=== PATIENT | male | born 1995 | race Caucasian/White ===

== ENCOUNTER 2018-06-02 04:47 | Day surgery (SDC) | payer BC, OTHER ==
[~2018-06-02] VITALS: Ht 177.8 cm; Wt 90.7 kg
[2018-06-02] MEDS ORDERED: LACTATED RINGERS 1,000 ML IV ONE (05:06)
[2018-06-02] MEDS ORDERED: KETOROLAC 30 MG/ML VIAL IVP STA (05:06)
[2018-06-02] MEDS ORDERED: ONDANSETRON 4 MG/2 ML (SDV) Z0FRAN IVP ONE (05:15)
[2018-06-02 05:20] LABS: BASOPHILS % (AUTO) 0 % (0-10); EOSINOPHILS % (AUTO) 0 % (0-10); HEMATOCRIT 45 % (40-54); HEMOGLOBIN 16.3 G/DL (13.3-17.7); LYMPHOCYTES % (AUTO) 5 % (12-44); MEAN CORPUSCULAR HEMOGLOBIN 29 PG (25-34); MEAN CORPUSCULAR HGB CONC 36 G/DL (32-36); MEAN CORPUSCULAR VOLUME 82 FL (80-99); MEAN PLATELET VOLUME 10.1 FL (7.4-10.4); MONOCYTES # (AUTO) 0.4 X 10^3 (0.0-1.0); MONOCYTES % (AUTO) 2 % (0-12); NEUTROPHILS # (AUTO) 17.3 X 10^3 (1.8-7.8); NEUTROPHILS % (AUTO) 92 % (42-75); PLATELET COUNT 273 10^3/uL (130-400); RED CELL DISTRIBUTION WIDTH 13.1 % (10.0-14.5); WHITE BLOOD COUNT 18.7 10^3/uL (4.3-11.0)
--- NOTE | 2018-06-02 05:22 | ED GI ---
General Stated Complaint: ABD PAIN Source of Information: Patient History of Present Illness Date Seen by Provider: Jun 02, 2018 Time Seen by Provider: 05:00 Initial Comments PT ARRIVES VIA POV FROM HOME C/O LOWER ABDOMINAL PAIN SINCE YESTERDAY AROUND NOON HAS HAD NAUSEA AND VOMITING SINCE YESTERDAY "AROUND NOON"--STATES HE HAD BREAKFAST AT 0600 YESTERDAY, ATE CEREAL, AND "THEN THREW IT RIGHT BACK UP" STATES HE HAS "VOMITED 18 TIMES" --STATES ACTUAL EMESIS 10-11 TIMES, AND DRY HEAVES 7-8 TIMES C/O "CONSTIPATED" SINCE WEDNESDAY--STATES HE HAD A NORMAL BM ON Wednesday05/31/18, AND NO BM SINCE STATES HE IS ONLY URINATING A LITTLE BIT TODAY--VOIDED JUST PRIOR TO ARRIVAL "BUT IT WAS ONLY A TRICKLE" NO FEVER, BUT HAS HAD CHILLS NO SICK CONTACTS OR SUSPICIOUS FOODS TOOK 2 TUMS YESTERDAY WITHOUT RELIEF PAIN IS WORSENED BY MOVEMENTS, WALKING, ETC. NO HISTORY OF GI PROBLEMS OR ABDOMINAL SURGERIES [facility] [facility] [place] [place] Allergies and Home Medications Allergies Coded Allergies: No Known Drug Allergies (Unverified , 06/02/18) Patient Home Medication List Home Medication List Reviewed: Yes Review of Systems Review of Systems Constitutional: see HPI, chills Respiratory: No Symptoms Reported Cardiovascular: No Symptoms Reported Gastrointestinal: See HPI, Abdominal Pain, Constipated, Nausea, Poor Appetite, Poor Fluid Intake, Vomiting Genitourinary: See HPI Musculoskeletal: no symptoms reported Skin: no symptoms reported Psychiatric/Neurological: No Symptoms Reported Endocrine: No Symptoms Reported Hematologic/Lymphatic: No Symptoms Reported Past Nghlqhb-Yldzgr-Gagwot Hx Patient Social History Alcohol Use: Occasionally Uses Recreational Drug Use: Yes (THC) Drug of Choice: THC Smoking Status: Current Everyday Smoker Type Used: Electronic/Vapor (STARTED 04/2018), Smokeless Tobacco (CHEWED 1 CAN EVERY 2-3 DAYS, QUIT 04/2018, NOW VAPES OF 06/02/18) Recent Foreign Travel: No Contact w/Someone Who Travel: No Past Medical History Surgeries: Yes (WISDOM TEETH , LEFT SHOULDER SURGERY) Orthopedic Respiratory: No Cardiac: No Neurological: No Genitourinary: No Gastrointestinal: No Musculoskeletal: Yes (LEFT SHOULDER SURGERY) HEENT: No (WISDOM TEETH ) Cancer: No Psychosocial: Yes Depression Integumentary: No Blood Disorders: No Physical Exam Vital Signs Vital Signs - First Documented 06/02/18 05:00 Temp 98.0 Pulse 99 Resp 16 B/P (MAP) 152/97 (115) Capillary Refill : Height/Weight/BMI Height: '" Weight: lbs. oz. kg; BMI Method: General Appearance: WD/WN, no apparent distress Neck: normal inspection Respiratory: normal breath sounds, no respiratory distress, no accessory muscle use Cardiovascular: regular rate, rhythm, no murmur Gastrointestinal: soft, no organomegaly, abnormal bowel sounds (HYPOACTIVE); No distended, No guarding; rebound (EQUIVOCAL), tenderness (DIFFUSE LOWER ABDOMINAL TENDERNESS, MOST TENDER IN RLQ); No hernia, No mass Back: no CVA tenderness Neurologic/Psychiatric: bulb grower II-XII nml as tested, no motor/sensory deficits, alert, normal mood/affect, oriented x 3 Progress/Results/Core Measures Results/Orders Lab Results Laboratory Tests Test 06/02/18 05:10 Range/Units White Blood Count 18.7 H 4.3-11.0 10^3/uL Red Blood Count 5.55 4.35-5.85 10^6/uL Hemoglobin 16.3 13.3-17.7 G/DL Hematocrit 45 40-54 % Mean Corpuscular Volume 82 80-99 FL Mean Corpuscular Hemoglobin 29 25-34 PG Mean Corpuscular Hemoglobin Concent 36 32-36 G/DL Red Cell Distribution Width 13.1 10.0-14.5 % Platelet Count 273 130-400 10^3/uL Mean Platelet Volume 10.1 7.4-10.4 FL Neutrophils (%) (Auto) 92 H 42-75 % Lymphocytes (%) (Auto) 5 L 12-44 % Monocytes (%) (Auto) 2 0-12 % Eosinophils (%) (Auto) 0 0-10 % Basophils (%) (Auto) 0 0-10 % Neutrophils # (Auto) 17.3 H 1.8-7.8 X 10^3 Lymphocytes # (Auto) 1.0 1.0-4.0 X 10^3 Monocytes # (Auto) 0.4 0.0-1.0 X 10^3 Eosinophils # (Auto) 0.0 0.0-0.3 10^3/uL Basophils # (Auto) 0.0 0.0-0.1 10^3/uL Neutrophils % (Manual) 92 % Lymphocytes % (Manual) 6 % Monocytes % (Manual) 2 % Sodium Level 139 135-145 MMOL/L Potassium Level 4.0 3.6-5.0 MMOL/L Chloride Level 104 98-107 MMOL/L Carbon Dioxide Level 21 21-32 MMOL/L Anion Gap 14 5-14 MMOL/L Blood Urea Nitrogen 13 7-18 MG/DL Creatinine 0.88 0.60-1.30 MG/DL Estimat Glomerular Filtration Rate > 60 BUN/Creatinine Ratio 15 Glucose Level 143 H 70-105 MG/DL Calcium Level 9.9 8.5-10.1 MG/DL Corrected Calcium 8.5-10.1 MG/DL Total Bilirubin 0.9 0.1-1.0 MG/DL Aspartate Amino Transf (AST/SGOT) 22 5-34 U/L Alanine Aminotransferase (ALT/SGPT) 26 0-55 U/L Alkaline Phosphatase 70 40-136 U/L Total Protein 8.1 6.4-8.2 GM/DL Albumin 4.9 H 3.2-4.5 GM/DL Amylase Level 52 25-125 U/L Lipase 13 8-78 U/L My Orders Orders - THOMAS HENDERSON DO Saline Lock/Iv-Start (06/02/18 05:06) Ct Abdomen/Pelvis Wo (06/02/18 05:06) Amylase (06/02/18 05:06) Cbc With Automated Diff (06/02/18 05:06) Comprehensive Metabolic Panel (06/02/18 05:06) Lipase (06/02/18 05:06) Ua Culture If Indicated (06/02/18 05:06) Acute Abd Series (06/02/18 05:06) Ondansetron Injection (Zofran Injectio (06/02/18 05:15) Saline Lock/Iv-Start (06/02/18 05:06) Lactated Ringers (Lr 1000 Ml Iv Solution (06/02/18 05:06) Ketorolac Injection (Toradol Injection) (06/02/18 05:06) Manual Differential (06/02/18 05:10) Fentanyl Injection (Sublimaze Injection (06/02/18 06:03) Saline Lock/Iv-Start (06/02/18 06:03) Piperacillin/Tazobactam (Bulk) (Zosyn In (06/02/18 06:15) Medications Given in ED Current Medications Medications Dose Ordered Sig/Lynn Route Start Time Stop Time Status Last Admin Dose Admin Lactated Ringer's 1,000 ml @ 0 mls/hr Q0M ONCE IV 06/02/18 05:06 06/02/18 05:08 DC 06/02/18 05:22 999 MLS/HR Ondansetron HCl 8 mg ONCE ONCE IVP 06/02/18 05:15 06/02/18 05:16 DC 06/02/18 05:19 8 MG Vital Signs/I&O 06/02/18 05:00 Temp 98.0 Pulse 99 Resp 16 B/P (MAP) 152/97 (115) Progress Progress Note : Progress Note NAUSEA RESOLVED WITH ZOFRAN MILD RELIEF WITH TORADOL, GIVEN FENTANYL WITH SIGNIFICANT IMPROVEMENT IN PAIN UNEVENTFUL ER STAY Diagnostic Imaging Comments ACUTE ABDOMEN XRAYS--NO ACUTE PROCESS, PENDING RADIOLOGIST REVIEW CT ABDOMEN/PELVIS--+ APPENDICITIS, WITH APPENDICOLITH, WITHOUT PERFORATION OR ABSCESS OR BOWEL OBSTRUCTION; HEPATIC STEATOSIS--PER RADIOLOGIST REPORT @ 0619 Reviewed: Reviewed by Me Departure Communication (Admissions) 0608--SPOKE WITH DR. DEXTER, WILL BE IN TO SEE PT. ADVISES ZOSYN AND WILL HOLD IN ER UNTIL BED AVAILABLE ON FLOOR. 0612--SPOKE WITH OPTIC FIBRE DRAWER AND AGREES WITH ABOVE PLAN 0619--DR DEXTER CALLED BACK, WILL BE IN TO SEE PT AND TAKE DIRECTLY TO SURGERY, BEFORE REGULAR SCHEDULED CASES 0622--DR. DEXTER HERE TO SEE PT, CARE TURNED OVER TO HIM 0634--SPOKE WITH [employer] F[employer] DRAWER AND INFORMED HIM OF THE ABOVE PLAN Impression Primary Impression: Appendicitis Disposition: 09 ADMITTED INPATIENT (TO SURGERY) Condition: Improved Admissions Decision to Admit Reason: Admit from ER (General) (TO SURGERY) Decision to Admit/Date: Jun 02, 2018 Time/Decision to Admit Time: 06:10 Departure-Patient Inst. Referrals: [facility] (PCP/Family) Primary Care Physician THOMAS HENDERSON DO Jun 02, 2018 05:22
[2018-06-02 05:39] LABS: ALANINE AMINOTRANSFERASE 26 U/L (0-55); ALBUMIN 4.9 GM/DL (3.2-4.5); ALKALINE PHOSPHATASE 70 U/L (40-136); AMYLASE 52 U/L (25-125); BILIRUBIN,TOTAL 0.9 MG/DL (0.1-1.0); BUN/CREATININE RATIO 15; CALCIUM 9.9 MG/DL (8.5-10.1); CARBON DIOXIDE 21 MMOL/L (21-32); CHLORIDE 104 MMOL/L (98-107); CREATININE SERUM 0.88 MG/DL (0.60-1.30); GFR ESTIMATED > 60; GLUCOSE 143 MG/DL (70-105); LIPASE 13 U/L (8-78); SODIUM 139 MMOL/L (135-145); TOTAL PROTEIN 8.1 GM/DL (6.4-8.2)
[2018-06-02 06:03] LABS: LYMPHOCYTES % (MANUAL) 6 %; MONOCYTES % (MANUAL) 2 %; NEUTROPHILS % (MANUAL) 92 %
[2018-06-02] MEDS ORDERED: fentaNYL INJECTION 100 MCG/2 ML AMP IVP STA (06:03)
[2018-06-02] MEDS ORDERED: PIPERACILLIN/TAZOBACTAM (BULK) 4.5 GM in NS (IVPB) 100 ML IV ONE (06:15)
--- NOTE | 2018-06-02 06:16 | Diagnostic Imaging Report ---
PROCEDURE: CT abdomen and pelvis without contrast. TECHNIQUE: Multiple contiguous axial images were obtained through the abdomen and pelvis without the use of intravenous contrast. INDICATION: Nausea and vomiting. COMPARISON: None available. FINDINGS: Evaluation of the abdominal viscera is mildly limited without contrast. Lower chest: The lung bases are clear. No pericardial or pleural effusion. Peritoneum: No free intraperitoneal air or fluid. Liver and biliary system: Diffuse hypoattenuation liver suggests hepatic steatosis. No focal hepatic lesion by noncontrast imaging. The gallbladder is normal. No biliary duct dilation. Spleen and Pancreas: Spleen is normal. Unenhanced pancreas is grossly normal. Adrenals: Normal. tract: No renal or ureteral calculi. No obstructive uropathy. Prostate is not enlarged. GI tract: Stomach is decompressed. No bowel obstruction. No pericolonic inflammatory changes. Appendix is dilated measuring 1.5 cm with an obstructing appendicolith at its neck. No perforation or abscess. Vasculature and Lymph nodes: Normal caliber aorta. No abdominal or pelvic lymphadenopathy. Musculoskeletal: No concerning osseous lesion. IMPRESSION: 1. Acute appendicitis secondary to an obstructing appendicolith at the neck of the appendix. 2. No perforation, abscess or bowel obstruction. 3. Diffuse hepatic steatosis. Dictated by: Dictated on workstation # [id number]
[2018-06-02] MEDS ORDERED: NS (IVPB) 100 ML ONE (06:28)
[2018-06-02] MEDS ORDERED: PIPERACILLIN/TAZO 4.5 GM VIAL (ZOSYN) IV ONE (06:29)
--- NOTE | 2018-06-02 06:42 | History & Physical-Surgical ---
History of Present Illness History of Present Illness Reason for visit/HPI Seen in emergency department: CC: rlq abdominal pain. 22 year old male with rlq abdominal pain sharp in nature. 8/10 pain. worse with movement. no radiation of pain. nothing making better except pain medication. having nausea and emesis. had some chills. denies fever sweats shortness of breath or chest pain. reviewed ct scan abd/pelvis demonstrating appendicolith and dilated appendix consistent with appendicitis. Date of Admission t Date Seen by a Provider: Jun 02, 2018 Time Seen by a Provider: 06:39 I consulted on this patient on 06/02/18 06:36 Attending Physician Admitting [facility] Allergies and Home Medications Allergies Coded Allergies: No Known Drug Allergies (Unverified , 06/02/18) Patient Home Medication List Home Medication List Reviewed: Yes Past Ubqtzel-Qqcljr-Mrmzbv Hx Patient Social History Alcohol Use: Occasionally Uses Recreational Drug Use: Yes (THC) Drug of Choice: THC Smoking Status: Current Everyday Smoker Type Used: Electronic/Vapor Recent Foreign Travel: No Contact w/Someone Who Travel: No Recent Infectious Disease Expo: No Recent Hopitalizations: No Seasonal Allergies Seasonal Allergies: No Surgeries History of Surgeries: Yes (WISDOM TEETH , LEFT SHOULDER SURGERY) Surgeries: Orthopedic Respiratory History of Respiratory Disorde: No Cardiovascular History of Cardiac Disorders: No Neurological History of Neurological Disord: No Genitourinary History of Genitourinary Disor: No Gastrointestinal History of Gastrointestinal Di: No Musculoskeletal History of Musculoskeletal Dis: Yes (LEFT SHOULDER SURGERY) Endocrine History of Endocrine Disorders: No HEENT History of HEENT Disorders: No (WISDOM TEETH ) Cancer History of Cancer: No Psychosocial History of Psychiatric Problem: No Behavioral Health Disorders: Depression Integumentary History of Skin or Integumenta: No Blood Transfusions History of Blood Disorders: No Family Medical History Significant Family History: No Pertinent Family Hx Review of Systems Constitutional: see HPI, chills EENTM: no symptoms reported Respiratory: no symptoms reported Cardiovascular: no symptoms reported Gastrointestinal: see HPI Genitourinary: no symptoms reported Musculoskeletal: no symptoms reported Skin: no symptoms reported Psychiatric/Neurological: No Symptoms Reported Physical Exam Vital Signs Vital Signs - First Documented 06/02/18 05:00 Temp 98.0 Pulse 99 Resp 16 B/P (MAP) 152/97 (115) Capillary Refill : Less Than 3 Seconds Height, Weight, BMI Height: 5'10.00" Weight: 200lbs. oz. 90.594478nm; BMI Method:Stated General Appearance: No Apparent Distress HEENT: PERRL/EOMI, Normal ENT Inspection Neck: Non Tender, Supple Respiratory: Chest Non Tender, No Accessory Muscle Use, No Respiratory Distress Cardiovascular: Regular Rate, Rhythm Gastrointestinal: Soft, Tenderness (rlq) Rectal: Deferred Back: No CVA Tenderness Extremity: Normal Inspection, Normal Range of Motion, Non Tender Neurologic/Psychiatric: Alert, Oriented x3, No Motor/Sensory Deficits, Normal Mood/Affect, fountain helper II-XII Norm as Tested Skin: Normal Color, Warm/Dry Lymphatic: No Adenopathy Data Review Labs Laboratory Tests 06/02/18 05:10: White Blood Count 18.7H, Red Blood Count 5.55, Hemoglobin 16.3, Hematocrit 45, Mean Corpuscular Volume 82, Mean Corpuscular Hemoglobin 29, Mean Corpuscular Hemoglobin Concent 36, Red Cell Distribution Width 13.1, Platelet Count 273, Mean Platelet Volume 10.1, Neutrophils (%) (Auto) 92H, Lymphocytes (%) (Auto) 5L , Monocytes (%) (Auto) 2, Eosinophils (%) (Auto) 0, Basophils (%) (Auto) 0, Neutrophils # (Auto) 17.3H, Lymphocytes # (Auto) 1.0, Monocytes # (Auto) 0.4, Eosinophils # (Auto) 0.0, Basophils # (Auto) 0.0, Neutrophils % (Manual) 92, Lymphocytes % (Manual) 6, Monocytes % (Manual) 2, Sodium Level 139, Potassium Level 4.0, Chloride Level 104, Carbon Dioxide Level 21, Anion Gap 14, Blood Urea Nitrogen 13, Creatinine 0.88, Estimat Glomerular Filtration Rate > 60, BUN/ Creatinine Ratio 15, Glucose Level 143H, Calcium Level 9.9, Corrected Calcium , Total Bilirubin 0.9, Aspartate Amino Transf (AST/SGOT) 22, Alanine Aminotransferase (ALT/SGPT) 26, Alkaline Phosphatase 70, Total Protein 8.1, Albumin 4.9H, Amylase Level 52, Lipase 13 Assessment/Plan Assessment/Plan Admission Diagonsis acute appendicitis rlq abdominal pain Admission Status: Observation Assessment/Plan acute appendicitis rlq abdominal pain discussed risks and benefits of laparoscopic appendectomy possible open all other indicated procedures he understands and wishes to proceed. to OR KEEGAN DEXTER DO Jun 02, 2018 06:42
[2018-06-02] MEDS ORDERED: LACTATED RINGERS 1,000 ML IV SCH (06:45)
--- NOTE | 2018-06-02 06:48 | Diagnostic Imaging Report ---
Indication: Abdominal pain, nausea and vomiting. Comparison: CT abdomen and pelvis performed concurrently. Findings: Lungs are clear. No pleural effusion or pneumothorax. Normal cardiomediastinal silhouette and pulmonary vasculature. Nonobstructive bowel gas pattern. No free intraperitoneal air. No abnormal mineralizations along the kidneys or urinary tract. Normal regional skeleton. Impression: 1. Nonobstructive bowel gas pattern. Please see CT report for features of acute appendicitis. Dictated by: Dictated on workstation # [id number]
[2018-06-02] MEDS ORDERED: GLYCOPYRROLATE 0.2 MG/ML (ROBINUL) 2 ML VIAL ONE (07:00)
[2018-06-02] MEDS ORDERED: SEVOFLURANE (ULTANE) 15 ML INHAL SOLN ONE (07:00)
[2018-06-02] MEDS ORDERED: SUCCINYLCHOLINE INJ 100 MG/5 ML SYR ONE (07:00)
[2018-06-02] MEDS ORDERED: LIDOCAINE PF 2% 5 ML (XYLOCAINE) VIAL ONE (07:00)
[2018-06-02] MEDS ORDERED: NEOSTIGMINE 1 MG/ML 5 ML SYRINGE ONE (07:00)
[2018-06-02] MEDS ORDERED: MIDAZOLAM 2 MG/2 ML (VERSED) VIAL ONE (07:00)
[2018-06-02] MEDS ORDERED: proPOfol 200 MG/20 ML (DIPRIVAN) VIAL IV ONE (07:00)
[2018-06-02] MEDS ORDERED: ROCURONIUM 10 MG/ML 5 ML SYRINGE IV ONE (07:00)
[2018-06-02] MEDS ORDERED: fentaNYL INJECTION 100 MCG/2 ML AMP ONE ×2 (07:00→08:35)
[2018-06-02 07:03] LABS: BILIRUBIN,URINE NEGATIVE (NEGATIVE); CLARITY,URINE CLEAR; COLOR,URINE YELLOW; GLUCOSE, URINE (UA) NEGATIVE (NEGATIVE); KETONES,URINE 2+ (NEGATIVE); LEUKOCYTE ESTERASE ,URINE NEGATIVE (NEGATIVE); NITRITE,URINE NEGATIVE (NEGATIVE); PH,URINE 7 (5-9); PROTEIN,URINE 2+ (NEGATIVE); UROBILINOGEN,URINE NORMAL (NORMAL)
[2018-06-02 07:15] LABS: BACTERIA,URINE NEGATIVE /HPF; SQUAMOUS EPITHELIAL CELL,UR RARE /HPF
[2018-06-02] MEDS ORDERED: LIDOCAINE 1% INJ 20 ML 20 ML VIAL ONE (07:18)
[2018-06-02] MEDS ORDERED: BUP/EPI 0.5% 1:200,000 (SENSORCAINE) 30 ML VIAL ONE (07:18)
[2018-06-02] MEDS ORDERED: LACTATED RINGERS 1,000 ML IV PRN (08:13)
[2018-06-02] MEDS ORDERED: morphine INJ 10 MG/ML 1ML (SYR OR VIAL) IVP ONE (08:15)
[2018-06-02] MEDS ORDERED: HYDROmorphone 2 MG/ML VIAL (DILAUDID) IV ONE (08:15)
[2018-06-02] MEDS ORDERED: ONDANSETRON 4 MG/2 ML (SDV) Z0FRAN IVP PRN (08:15)
--- NOTE | 2018-06-02 08:35 | Progress Note-Post Operative ---
Post-Operative Progess Note Surgeon (s)/Fitness Professional (s) Surgeon KEEGAN DEXTER DO Fitness Professional: na Pre-Operative Diagnosis appendicitis, rlq abd pain Post-Operative Diagnosis appendicitis Procedure & Operative Findings Date of Procedure 06/02/18 Procedure Performed/Findings lap appy Anesthesia Type gen Estimated Blood Loss Estimated blood loss (mL): min Specimens/Packing Specimens Removed appendix KEEGAN DEXTER DO Jun 02, 2018 08:35
[2018-06-02] MEDS ORDERED: ACHD5005 PO (08:36)
[2018-06-02] MEDS ORDERED: DOCU-143 PO (08:36)
--- NOTE | 2018-06-02 08:38 | Discharge Inst-Simple/Standard ---
Discharge Inst-Standard Discharge Medications New, Converted or Re-Newed RX: RX on Chart Patient Instructions/Follow Up Plan of Care/Instructions/FU: 2 weeks Tony. Use incentive spirometer 10x per hr when awake. Activity as Tolerated: No Discharge Diet: Regular Diet, Liquid Diet (advance to regular diet as tolerates.) Other Inst to Patient Follow up Appt: Make appointment for 2 week. Instructions: No lifting greater than 10 pounds. No strenuous activity. May shower in 24 hours, no tub bath or soaking. Use incentive spirometer at home as directed. No Smoking Skin/Wound Care: You have special glue over incisions it will fall off on its own. Symptoms to Report: Appetite Changes, Extremity Discoloration, Numbness/Tingling, Swelling Increased , Bleeding Excessive, Eyesight Changes, Pain Increased, Urine Color Change, Constipation(Persistent), Fever over 101 degree F, Pain/Pressure in chest, Urinating Difficulty, Cough Up/Vomit Blood, Heart Beat Irreg/Pounding, Pain/ Pressure in jaw, Vaginal Bleeding Increase, Cramps in feet or legs, Lightheadedness, Pain/Pressure in shoulder, Diarrhea(Persistent), Memory Changes Suddenly, Questions/Concerns, Weight gain consecutive days, Dizziness/ Fainting, Nausea/Vomiting, Shortness of Breath, Weight gain over 2 pounds If questions or concerns contact your physician Or seek help at emergency department. KEEGAN DEXTER DO Jun 02, 2018 08:38
[2018-06-02] MEDS ORDERED: morphine INJ 10 MG/ML 1ML (SYR OR VIAL) ONE (08:45)
[2018-06-02] MEDS ORDERED: ONDANSETRON 4 MG/2 ML (SDV) Z0FRAN ONE (08:45)
[2018-06-02] MEDS ORDERED: HYDROmorphone 2 MG/ML VIAL (DILAUDID) ONE (08:45)
[2018-06-02 09:45] VITALS: BP 131/96
--- NOTE | 2018-06-02 09:45 | NUR ---
RECEIVED PATIENT PER CART FROM PACU. VSS. ASSESSED. PATIENT CAME TO THE ER THIS MORNING WITH APPENDICITIS AND THEN WENT TO THE OR FOR AN EMERGENCY LAPAROSCOPIC APPENDECTOMY.
[2018-06-02 10:15] VITALS: BP 144/98
[2018-06-02] MEDS ORDERED: HYDROcodone/APAP 5 MG/325 MG (LORTAB) TAB ONE (10:31)
[2018-06-02] MEDS ORDERED: HYDROcodone/APAP 5 MG/325 MG (LORTAB) TAB PO ONE (10:45)
--- NOTE | 2018-06-02 11:03 | OPERATIVE REPORT ---
DATE OF SERVICE: 06/02/2018 PREOPERATIVE DIAGNOSES: Right lower quadrant abdominal pain and appendicitis. POSTOPERATIVE DIAGNOSES: Right lower quadrant abdominal pain and appendicitis. PROCEDURE: Laparoscopic appendectomy. SURGEON: Keegan Jimenez DO. ANESTHESIA: General. ESTIMATED BLOOD LOSS: Minimal. COMPLICATIONS: None. INDICATIONS: The patient is a 22-year-old male, who presented to the emergency department with right lower quadrant abdominal pain, nausea and vomiting and CT scan and physical exam consistent with appendicitis. The patient was discussed risks and benefits of the procedure and wished to proceed with procedure. Consent was signed in the chart. DESCRIPTION OF PROCEDURE: The patient was taken to the operating suite and he was prepped and draped in sterile fashion. Surgical pause was performed. A 5 mm incision was made at the umbilicus. Mirian was used to dissect down the fascia, grasped and elevated. Veress needle was inserted and pneumoperitoneum was achieved. Under direct visualization of the laparoscope, a 5 mm trocar was then placed. Under direct visualization of the laparoscope, a 5 mm trocar was placed in the suprapubic region and a 12 mm trocar was placed in the left lower quadrant. Appendix was dilated and inflamed and rigid. It was grasped and elevated. A [place] was used to dissect around the base of the appendix. An Endo-REBECA 2.5 stapler was then fired across the base of the appendix. An Endo-REBECA 2.0 reload was then fired across the mesoappendix. It was placed in an Endobag and removed through the 12 mm trocar site. The abdomen was then irrigated with copious amounts of irrigation and suction and hemostasis was achieved. The 12 mm fascial defect was then closed with 0 Vicryl with an Endoclose. The abdomen was then desufflated and the trocars removed. The skin incision was then closed with 4-0 Vicryl and 4-0 Monocryl sutures. The abdomen was then washed and dried and Skin Affix was placed over the incisions. The patient tolerated procedure well without any complications and taken to the recovery room in stable condition. Job ID: [id number] DocumentID: [id number] Dictated Date: 06/02/2018 08:40:14 Window Treatment Installer Date: 06/02/2018 11:03:17 Dictated By: KEEGAN JIMENEZ DO
== END 2018-06-02 10:35 | disposition home or self-care (01) ==
LOC: ER 04:50 → SDC 06:45
PROVIDERS: ATTEND Surgery
DX: K35.80 Unspecified acute appendicitis (principal); F17.210 Nicotine dependence, cigarettes, uncomplicated; F32.9 Major depressive disorder, single episode, unspecified; F17.290 Nicotine dependence, other tobacco product, uncomplicated
CPT/HCPCS: 36415; 74022; 74176; 80053; 81000; 82150; 83690; 85007; 85027; 87081